=== PATIENT | female | born 1955 | race Caucasian/White ===

== ENCOUNTER 2018-12-15 06:40 | Inpatient (IN) | payer BC ==
[2018-12-15] VITALS (8 sets, daily range): BP systolic 116–141; BP diastolic 60–82; PULSE 66–83; TEMP 97.9–98.3
[~2018-12-15] VITALS: Ht 162.6 cm; Wt 80.8 kg
[2018-12-15] MEDS ORDERED: TOPAMAX 100MG100 M1 PO (07:32)
[2018-12-15] MEDS ORDERED: CALCIUM 600-D 61 TAB PO (07:33)
[2018-12-15] MEDS ORDERED: MAG-OX 400400 MG/TAB PO (07:37)
[2018-12-15] MEDS ORDERED: MULTI VITAMINS1 TAB PO (07:38)
[2018-12-15] MEDS ORDERED: ZANAFLEX CAPSULE4 MG PO (07:39)
[2018-12-15] MEDS ORDERED: FIORICET 325 MG1 TA1 PO (07:41)
[2018-12-15] MEDS ORDERED: FIORINAL 325 MG1 CAP PO (07:41)
[2018-12-15] MEDS ORDERED: ULTRAM 50MG TAB50 MG PO (07:42)
[2018-12-15] MEDS ORDERED: LIPITOR 40MG TA40 MG PO (07:43)
[2018-12-15] MEDS ORDERED: CYMBALTA 60MG60 MG PO (07:43)
[2018-12-15] MEDS ORDERED: ZANTAC 150MG T150 MG PO (07:44)
[2018-12-15] MEDS ORDERED: NEURONTIN300 MG/CAP PO (07:46)
[2018-12-15] MEDS ORDERED: RECLAST5 MG/100 M IV (07:47)
[2018-12-15] MEDS ORDERED: VITAMIN D31000 I1 PO (07:48)
[2018-12-15] MEDS ORDERED: VITAMIN B12 681 TAB PO (07:49)
[2018-12-15] MEDS ORDERED: PROBIOTIC FORMU1 CAP PO (07:50)
--- NOTE | 2018-12-15 10:10 | NUR ---
Patient is going down for surgery. Consent on chart, is not signed at this time. She has not spoken with the Doctor about surgery yet. Pre-ops given.
--- NOTE | 2018-12-15 10:59 | NUR ---
Plan: Plan to return home with father Santiago Faith as care support. Patient resides in [place] with [place] . Patient reports that she will be flying home on December 19. Assess: SW met with patient about DC plan. Patient reports that she has support with her father. Patient indicated that she is visiting her father. Patient reports that she does not have any needs currently but may after surgery/scheduled today. Patient reports that her father will transport her home. Patient reports that if she is sent home with medications she will use [facility] locally for short term medications. Patient reports that she has DME; cane, ankle brace (l) and night 02 2 liters. Patient denies the need for home health. PCP is [facility]: SW will follow-up after surgery for any additional needs prior to DC.
[2018-12-15] MEDS ORDERED: PYRIDIUM 100MG100 MG PO (14:22)
[2018-12-15] MEDS ORDERED: NORCO 325 MG-51 TAB PO (14:23)
--- NOTE | 2018-12-15 16:25 | NUR ---
Patient is discharging home. She has scripts to get filled, explained to get them filled before getting to [place] since that pharmacy will be closed. Explained she needs to make an appointment with her urologist in [place] to get her stent removed. She stated she has one that she sees when she had stones before. Copies of discharge instructions sent with patient. Reminded her she has a stent this time that needs to get discontinued. All belongings packed up and sent with patient. Patient walked out by [facility] via wheel chair.
== END 2018-12-15 16:25 | disposition home or self-care (01) | DRG 661 ==
LOC: SURG 06:40
PROVIDERS: ADMIT Urology
PROC: 0T778DZ Dilation of Left Ureter with Intraluminal Device, Via Natural or Artificial Opening Endoscopic (ICD-10-PCS; principal; 2018-12-15 10:30)
PROC: 0TC48ZZ Extirpation of Matter from Left Kidney Pelvis, Via Natural or Artificial Opening Endoscopic (ICD-10-PCS; principal; 2018-12-15 10:30)
DX: N20.1 Calculus of ureter (principal); Z88.0 Allergy status to penicillin; E78.5 Hyperlipidemia, unspecified; K21.9 Gastro-esophageal reflux disease without esophagitis; M79.7 Fibromyalgia
CPT/HCPCS: C1769; C2617; J0690; J1100; J1885; J2405; J2550; J2704; J3010; J7030; Q9967

== ENCOUNTER → 2023-03-23 | Outpatient (CLI) | payer BC, MEDICARE ==
[~2023-03-23] MED LIST: CALCIUM 600-D 61 TAB PO; CYMBALTA 60MG60 MG PO; FIORICET 325 MG1 TA1 PO; FIORINAL 325 MG1 CAP PO; LIPITOR 40MG TA40 MG PO; MAG-OX 400400 MG/TAB PO; MULTI VITAMINS1 TAB PO; NEURONTIN300 MG/CAP PO; NORCO 325 MG-51 TAB PO; PROBIOTIC FORMU1 CAP PO; PYRIDIUM 100MG100 MG PO; RECLAST5 MG/100 M IV; TOPAMAX 100MG100 M1 PO; ULTRAM 50MG TAB50 MG PO; VITAMIN B12 681 TAB PO; VITAMIN D31000 I1 PO; ZANAFLEX CAPSULE4 MG PO; ZANTAC 150MG T150 MG PO
== END ==
LOC: COL.PUL 13:59
DX: R06.02 Shortness of breath (principal)

== ENCOUNTER → 2023-04-20 | Outpatient (CLI) | payer MEDICARE, BC | LOC: CANSCHCLI → COL.VAS 13:15 → COL.CARD 13:15 | DX: R06.02 Shortness of breath (principal) | CPT/HCPCS: J7674 ==